=== PATIENT | male | born 1975 | race Caucasian/White ===

== ENCOUNTER 2023-10-02 13:25 | Emergency (ER) | payer SELFPAY ==
--- NOTE | 2023-10-02 13:27 | XRR_ITS ---
PROCEDURE INFORMATION: Exam: XR Chest Exam date and time: 10/02/2023 1:39 PM Age: 48 years old Clinical indication: Other: Seizure TECHNIQUE: Imaging protocol: Radiologic exam of the chest. Views: 1 view. COMPARISON: No relevant prior studies available. FINDINGS: Lungs: No focal consolidation. Pleural spaces: No evidence of pneumothorax. No evidence of pleural effusion. Heart/Mediastinum: Cardiomediastinal silhouette is within normal limits. Bones/joints: No evidence of acute osseous abnormality. XR/XR chest 1V portable [id number] IMPRESSION: 1. No acute cardiopulmonary abnormality.
--- NOTE | 2023-10-02 13:27 | CT_ITS ---
WS: [id number] CT HEAD NONCONTRAST HISTORY: seizure TECHNIQUE: Contiguous axial imaging performed through the brain in 2.5 mm imaging. Bone and soft tiss ue windows. Sagittal and coronal reformats reviewed. All CT scans at [facility] use at least one of these dose optimization techniques: automated exposure control; mA and/or kV adjustment per pa tient size (includes targeted exams where dose is matched to clinical indication); or iterative recon struction. DLP: 1260.68 mGy.cm COMPARISON: None available. Acute hemorrhage centered in the RIGHT temporal lobe measures 3.1 x 4.0 cm and extends over a length of 2.6 cm. Small amount of surrounding edema. No midline shift at this time. No intraventricular bloo d. The remaining brain is negative. No atrophy or prior infarcts or herniation. Ventricles: Normal size with no hydrocephalus. Paranasal sinuses: Small mucous retention cyst in the LEFT maxillary sinus. Mastoid air cells: Well pneumatized. Calvarium and scalp: Skull is intact with no soft tissue edema or swelling. IMPRESSION: 1. Acute hemorrhage centered in the RIGHT temporal lobe measures 3.1 x 4.0 x 2.6 cm. Small amount of surrounding edema. No midline shift at this time. There is sulcal effacement within the adjacent RIG HT temporal lobe. Suspect underlying mass or vascular malformation. Will need follow-up MRI brain wit h and without contrast. 2. No additional abnormality. Notified Susannah Velazquez at 10/02/2023 2:21 PM.
[2023-10-02 13:28] VITALS: BP 168/120; PULSE 116; TEMP 36.4; O2SAT 95; BMI 49.5
--- NOTE | 2023-10-02 13:28 | ECG_ITS ---
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 Measurements Intervals [place] Rate: 127 P: 0 CO: 0 QRS: 27 QRSD: 105 T: 116 QT: 316 QTc: 460 Interpretive Statements SINUS TACHYCARDIA WITH RAPID VENTRICULAR RESPONSE ST DEVIATION AND MODERATE T-WAVE ABNORMALITY, CONSIDER LATERAL ISCHEMIA [-0.1+ mV T-WAVE IN I/aVL/V5/V6] No previous ECG available for comparison Electronically Signed On 10-02-2023 15:37:41 CDT by Adam Mota M.D. [email or web address]/store/[id number] f
--- NOTE | 2023-10-02 13:31 | ED_ITS ---
HPI - Seizure 2 General: Chief Complaint: Seizure Stated Complaint: seizures Time Seen by Provider: 10/02/23 13:26 Source: EMS Mode of arrival: EMS Limitations: altered mental status History of Present Illness: HPI Narrative: 48-year-old male is here from the [facility] after a seizure and had a witnessed seizure just prior to arrival lasted less than a minute but did have a postictal period patient still Postictal and combative. Patient has no history of seizures denies any recent illnesses did get most history from his and EMS Review of Systems 2 General: Reports: ROS unobtainable due to mental status Physical Exam 2 Const: COMMON NORMALS: apparent distress and negative for patient oriented x3 ORIENTATION/CONSCIOUSNESS: not oriented to person, not oriented to place and not oriented to time HENMT: COMMON NORMALS: normocephalic and atraumatic HEAD & SCALP: n ormocephalic and atraumatic Eye: COMMON NORMALS: Equal, round and reactive pupils present and EOMs intact bilaterally PUPIL: Yes Equal, round and reactive pupils present Neck/C-Spine: COMMON NORMALS: full ROM and supple Chest: COMMONS NORMALS: normal inspection of the chest and normal palpation of entire chest wall Resp: COMMON NORMALS: normal respiratory effort, No retractions, No use of accessory muscles and clear to auscultation bilaterally AUSCULTATION: clear to auscultation bilaterally Cardio: COMMON NORMALS: regular rate, regular rhythm and No murmurs present (Cardio) RATE: regular rate RHYTHM: regular rhythm Extremity: COMMON NORMALS: normal to inspection and full ROM Neuro: COMMON NORMALS: negative for patient oriented x3 and negative for moves all extremities SENSORIUM/ORIENTATION: No oriented to person, No oriented to place and No oriented to time Psych: COMMON NORMALS: mental status grossly normal, Normal thought process present and cooperative THOUGHT PROCESS: Normal thought process present Skin: COMMON NORMALS: no rashes or lesions noted and no wounds GENERAL SKIN EXAM: no rashes or lesions noted Procedures Intubation Time out performed: Yes sedative: Etomidate Mg Given: 30 paralytic: Succinylcholine Mg Given: 225 ET Tube Size: 8 ET Tube Uncuffed: No Tube Secured Depth (cm): 26 Tube Placement Confirmation: visualized tube passing through cords, equal breath sounds bilaterally and no breath sounds over epigastrium Patient Tolerated Procedure: well Intubation Complications: none Course 2 Vital Signs: Vital signs: Vital Signs Temperature 97.5 F L 10/02/23 13:28 Pulse Rate 116 H 10/02/23 13:28 Blood Pressure 168/120 10/02/23 13:28 Pulse Oximetry 95 10/02/23 13:28 Oxygen Delivery Me thod Nasal Cannula 10/02/23 13:28 Oxygen Flow Rate 6 10/02/23 13:28 MDM - Seizure MDM Narrative Medical decision making narrative: Patient presents here with seizure he is found to have a intracranial hemorrhage here is likely caused his seizure patient was intubated here started on Cardene for his blood pressure did give him Keppra as well for seizure. Did speak to [facility] will transfer there for higher level of care for neurosurgery Lab Data 10/02/23 13:34 10/02/23 13:34 Labs: Laboratory Results WBC 14.85 10^3/uL (3.29-11.43) H 10/02/23 13:34 RBC 5.48 10^6/uL (3.85-5.65) 10/02/23 13:34 Hgb 16.40 g/dL (11.27-16.99) 10/02/23 13:34 Hct 49.0 % (37-53) 10/02/23 13:34 MCV 89.4 fl (82-101) 10/02/23 13:34 MCH 29.9 pg (27-33) 10/02/23 13:34 MCHC 33.5 g/dL (30-55) 10/02/23 13:34 RDW 12.4 % (12.1-15.1) 10/02/23 13:34 Plt Count 257 10^3/cmm (157-399) 10/02/23 13:34 MPV 10.7 fL (7.4-10.4) H 10/02/23 13:34 Neut % (Auto) 64.9 % 10/02/23 13:34 Lymph % (Auto) 26.4 % 10/02/23 13:34 [place] % (Auto) 7.3 % 10/02/23 13:34 Eos % (Auto) 0.4 % 10/02/23 13:34 Baso % (Auto) 0.5 % 10/02/23 13:34 Neut # (Auto) 9.62 10^3/uL (1.8-7.7) H 10/02/23 13:34 Lymph # (Auto) 3.9 10^3/uL (0.8-4.8) 10/02/23 13:34 [place] # (Auto) 1.1 10^3/uL (0.2-0.9) H 10/02/23 13:34 Eos # (Auto) 0.1 10^3/uL (0.0-0.8) 10/02/23 13:34 Baso # (Auto) 0.1 10^3/uL (0.0-0.1) 10/02/23 13:34 Nucleated RBC % (auto) 0 % 10/02/23 13:34 Nucleated RBCs # 0.0 /100WBC 10/02/23 13:34 Sodium 139 mmol/L (136-145) 10/02/23 13:34 Potassium 4.0 mmol/L (3.5-5.1) 10/02/23 13:34 Chloride 98 mmol/L (98-107) 10/02/23 13:34 Carbon Dioxide 11 mmol/L (22-29) L 10/02/23 13:34 Anion Gap 34.0 (5-19) H 10/02/23 13:34 BUN 17 mg/dL (6-20) 10/02/23 13:34 Creatinine 1.2 mg/dL (0.7-1.2) 10/02/23 13:34 GFR Calculation 64.4 mL/min (90-130) L 10/02/23 13:34 Glucose 191 mg/dL (65-115) H 10/02/23 13:34 Calculated Osmolality 295 mOsm/kg (285-295) 10/02/23 13:34 Calcium 9.2 mg/dL (8.5-10.5) 10/02/23 13:34 Magnesium 2.3 mg/dL (1.7-2.3) 10/02/23 13:34 Total Bilirubin 0.5 mg/dL (0.15-1.2) 10/02/23 13:34 AST 25 U/L (0-40) 10/02/23 13:34 ALT 28 U/L (0-41) 10/02/23 13:34 Alkaline Phosphatase 99 U/L (40-130) 04/08/24 13:34 Troponin T Baseline 21 ng/L (0-15) H 10/02/23 13:24 Total Protein 8.0 g/dL (6.6-8.7) 10/02/23 13:34 Albumin 4.6 g/dL (3.5-5.2) 10/02/23 13:34 Globulin 3.4 g/dL (1.3-4.6) 10/02/23 13:34 Ethyl Alcohol < 10 mg/dL (0-10) 10/02/23 13:34 All radiology interpretation(s) finalized by discharge EKG Data EKG 1: Attestation: I personally reviewed and interpreted this EKG as follows: EKG interpretation date: 10/02/23 EKG interpretation time: 13:30 Interpretation: atrial flutter hr [address] elevation qrs 105 qtc 391 Critical Care Time 2 Critical Care Time: Critical Care Time: Yes Total Critical Care Time: 45 Attestation: The high probability of a clinically significant, sudden or life threatening deterioration of the patient's neuro system(s) required my full and direct attention, intervention and personal management. The critical care time is as shown. This time is in addition to time spent performing any reported procedures but includes the following: [x] Data and vital sign review and interpretation [x] Patient assessment, examination and intervention [x] Documentation [x] Medication orders and management Discharge Plan Discharge Prescriptions: No Action Adapten-All See Rx Instructions .ROUTE .COMPLEX Rx Instructions: as directed Aspir-81 81 mg Tablet,Delayed Release (Dr/Ec) 243 mg PO .FOR THE LAST 2 DAYS magnesium oxide 400 mg magnesium Tablet See Rx Instructions .ROUTE .COMPLEX Rx Instructions: as directed Curcumin Caps See Rx Instructions .ROUTE .COMPLEX Rx Instructions: as directed Coding Level of Care Code ED Contract Analyst for [employer]
[2023-10-02] MEDS: LORazepam 2 mg/mL INJ 10 mL MDV IVP (13:34)
[2023-10-02] MEDS: sodium chloride 0.9% 1,000 ML 999 ML IV (13:35)
[2023-10-02 13:42] LABS: Basophils # 0.1 10^3/uL (0.0-0.1); Basophils % 0.5 %; Eosinophils # 0.1 10^3/uL (0.0-0.8); Eosinophils % 0.4 %; Lymphocytes # 3.9 10^3/uL (0.8-4.8); Lymphocytes % 26.4 %; Mean Corpuscular HGB Conc 33.5 g/dL (30-55); Mean Corpuscular Hemoglobin 29.9 pg (27-33); Mean Corpuscular Volume 89.4 fl (82-101); Mean Platelet Volume 10.7 fL (7.4-10.4); Monocytes # 1.1 10^3/uL (0.2-0.9); Monocytes % 7.3 %; Neutrophils # 9.62 10^3/uL (1.8-7.7); Neutrophils % 64.9 %; Nucleated Red Blood Cells % 0 %; Platelet Count 257 10^3/cmm (157-399); Red Blood Count 5.48 10^6/uL (3.85-5.65); Red Cell Distribution Width 12.4 % (12.1-15.1); White Blood Count 14.85 10^3/uL (3.29-11.43)
--- NOTE | 2023-10-02 13:44 | ECG_ITS ---
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 Measurements Intervals [place] Rate: 127 P: 0 RI: 0 QRS: 27 QRSD: 105 T: 116 QT: 316 QTc: 460 Interpretive Statements SINUS TACHYCARDIA WITH RAPID VENTRICULAR RESPONSE ST DEVIATION AND MODERATE T-WAVE ABNORMALITY, CONSIDER LATERAL ISCHEMIA [-0.1+ mV T-WAVE IN I/aVL/V5/V6] No previous ECG available for comparison Electronically Signed On 10-02-2023 15:37:57 CDT by Adam Mota M.D. [email or web address] county [email or web address].[employer]/store/NU/[id number] f
--- NOTE | 2023-10-02 13:44 | PC.PHAR ---
pts verified pts medications-states the pt may take 2 more different otc supplements but states she cant think of them at the moment- states he takes no prescription medications states for the last 2 days he has been taking 3tabs of 81mg aspirin- states she is unsure how much he takes of each of the medications entered states he takes as directed based on body weight -notes are made in the pharmacy comments
[2023-10-02 13:45] VITALS: PULSE 116; O2SAT 95
[2023-10-02 13:58] LABS: Alanine Aminotransferase 28 U/L (0-41); Albumin Level 4.6 g/dL (3.5-5.2); Alkaline Phosphatase 99 U/L (40-130); Aspartate Amino Transferase 25 U/L (0-40); Blood Urea Nitrogen 17 mg/dL (6-20); Calcium 9.2 mg/dL (8.5-10.5); Carbon Dioxide 11 mmol/L (22-29); Chloride 98 mmol/L (98-107); Creatinine Clr Calc Pharmacy 112.0602; Globulin 3.4 g/dL (1.3-4.6); Glomerular Filtration Rate 64.4 mL/min (90-130); Glucose 191 mg/dL (65-115); Magnesium 2.3 mg/dL (1.7-2.3); Osmolality Calculated 295 mOsm/kg (285-295); Sodium 139 mmol/L (136-145); Total Bilirubin 0.5 mg/dL (0.15-1.2)
[2023-10-02 14:00] VITALS: BP 176/116; PULSE 98; O2SAT 89
[2023-10-02 14:00] LABS: Alcohol Level < 10 mg/dL (0-10)
[2023-10-02 14:22] LABS: Troponin(5th) Baseline 21 ng/L (0-15)
[2023-10-02] MEDS: etomidate 2 mg/mL INJ SDV 10 mL 30 MG IVP (14:22)
[2023-10-02] MEDS: succinylcholine 20 mg/mL SDV 10mL 225 MG IVP (14:22)
[2023-10-02 14:25] VITALS: RESP 21
[2023-10-02] MEDS: propofol 1,000 MG/100 ML INJ 28.1700000000000017 MG IV (14:28)
[2023-10-02 14:30] VITALS: BP 187/105; PULSE 115; O2SAT 98
[2023-10-02] MEDS: labetalol 5 mg/mL SDV 20mL 10 MG IVP (14:34)
--- NOTE | 2023-10-02 14:35 | XR_ITS ---
WS: [id number] PORTABLE CHEST HISTORY: TUBE PLACEMENT COMPARISON: Earlier the same day. Endotracheal tube has been placed with tip in the mid trachea. Lung volumes are decreased. Mild hazy attenuation is probably in part due to the poor inspiration and technique. No definite mass identified. No pleural effusion or pneumothorax. Cardiac size: Normal. Mediastinum/Aorta: Mild widening of the mediastinum due to portable technique. No osseous abnormality seen. IMPRESSION: Endotracheal tube in good position.
[2023-10-02] MEDS: nicardipine 20 MG/200 ML PREMIX 75 MG IV (14:37)
[2023-10-02 14:39] VITALS: BP 187/105; PULSE 86; O2SAT 98
[2023-10-02] MEDS: propofol 10 mg/mL SDV 20 mL 100 MG IVP (14:41)
[2023-10-02] MEDS: propofol 10 mg/mL SDV 20 mL 200 MG (14:43)
[2023-10-02] MEDS: ondansetron 2 mg/ML SDV 2 mL 4 MG IVP (14:49)
[2023-10-02] MEDS: levETIRAcetam 1,500 MG/100 ML PREMIX 400 MG IV (14:49)
[2023-10-02] MEDS: fentaNYL 1,000 MCG/100 ML BAG 5 MCG IV ×2 (14:50→16:59)
== END 2023-10-02 17:02 ==
PROVIDERS: Emergency Provider Emergency Medicine
DX: R56.9 Unspecified convulsions (principal)
CPT/HCPCS: 31500; 70450; 71045; 80053; 80307; 83735; 84484; 85025; 93005; 94002; 94799; 96365; 96366; 96367; 96375; 99291; 99292; J0330; J1953; J2060; J2405; J2704; J3010; J3490; J7030